=== PATIENT | male | born 1985 | race African-American/Black ===

== ENCOUNTER 2016-07-11 09:50 | Emergency (ER) | payer SELFPAY ==
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
[2016-07-11 11:44] VITALS: BP 125/85
== END 2016-07-11 11:35 | disposition home or self-care (01) ==
LOC: FB.ED 09:50
DX: S43.101A Unspecified dislocation of right acromioclavicular joint, initial encounter (principal); Y04.0XXA Assault by unarmed brawl or fight, initial encounter; Y92.89 Other specified places as the place of occurrence of the external cause
CPT/HCPCS: 71020; 73030-RT; 99282; 99284